=== PATIENT | male | born 1955 | race Caucasian/White ===

== ENCOUNTER 2017-05-01 10:57 | Emergency (ER) | payer MEDICAID ==
[~2017-05-01] VITALS: Ht 165.1 cm; Wt 91.0 kg
[~2017-05-01 10:57] MED LIST: ASPI-1265 PO; ATOR20TA PO; CLON-527 PO; CYCL-394 PO; GABA-341 PO; LEVO75TA57 PO; NORCO10T PO; POTA8TAB8; ROPI1TAB17 PO; VENL-190 PO
[2017-05-01] MEDS ORDERED: valacyclovir 500mg tablet PO STA (11:23)
[2017-05-01] MEDS ORDERED: diphenhydrAMINE 50 mg/ml inj IM ONE (11:25)
[2017-05-01] MEDS ORDERED: LIDOcaine Viscous 15ml cup MM PRN (11:25)
[2017-05-01] MEDS ORDERED: ketorolac trometh inj. 60 MG/2 ML VIAL IM ONE (11:25)
[2017-05-01] MEDS ORDERED: LIDO20SO16 PO (12:22)
[2017-05-01] MEDS ORDERED: HYDR-565 PO (12:22)
[2017-05-01] MEDS ORDERED: VALA10002 PO (12:22)
[2017-05-01 12:47] VITALS: BP 125/67
[2017-05-02] MEDS ORDERED: VALA10002 PO (09:39)
[2017-05-02] MEDS ORDERED: LIDO20SO16 PO (09:41)
[2017-05-02] MEDS ORDERED: MELO-102 (11:57)
== END 2017-05-01 12:47 | disposition home or self-care (01) ==
LOC: ER 10:57
DX: B02.21 Postherpetic geniculate ganglionitis (principal); K21.9 Gastro-esophageal reflux disease without esophagitis; G89.29 Other chronic pain; F12.10 Cannabis abuse, uncomplicated; Z88.0 Allergy status to penicillin; Z79.82 Long term (current) use of aspirin; Z79.899 Other long term (current) drug therapy
CPT/HCPCS: 96372; 99284; J1200; J1885

== ENCOUNTER 2017-05-02 07:14 | Inpatient (IN) | payer MEDICAID ==
[~2017-05-02] VITALS: Ht 175.3 cm; Wt 75.0 kg
[~2017-05-02 07:14] MED LIST changes: +HYDR-565 PO; +LIDO20SO16 PO; +VALA10002 PO
[2017-05-02] MEDS ORDERED: morphine 2 MG/ML inj. syringe IV ONE (07:30)
[2017-05-02] MEDS ORDERED: diphenhydrAMINE 25 MG/10 ML UD oral solution PO ONE (07:30)
[2017-05-02] MEDS ORDERED: mag hydrox/Alum hydrox/simeth 30ml oral suspension PO ONE (07:30)
[2017-05-02] MEDS ORDERED: normal saline 1000ML IV soln IVB ONE (07:30)
[2017-05-02] MEDS ORDERED: ketorolac trometh. 30mg/ml inj. IV ONE (07:30)
[2017-05-02] MEDS ORDERED: LIDOcaine Viscous 15ml cup PO ONE (07:30)
[2017-05-02] MEDS ORDERED: proparacaine 0.5% ophthalmic drops 15ml EACHEYE ONE (07:55)
[2017-05-02] MEDS ORDERED: acyclovir inj 1,000 MG in normal saline 250ml IV soln 230 ML IV ONE (08:00)
[2017-05-02 08:03] LABS: BASOPHILS % (AUTO) 0.4 % (0-1); EOSINOPHILS # (AUTO) 0.1 X10'3 (0-0.9); EOSINOPHILS % (AUTO) 1.6 % (0-6); HEMATOCRIT 46.5 % (42.0-52.0); HEMOGLOBIN 15.5 g/dl (14.0-17.9); LYMPHOCYTES # (AUTO) 0.6 X10'3 (1.1-4.8); LYMPHOCYTES % (AUTO) 7.7 % (21-51); MEAN CORPUSCULAR HGB CONC 33.3 % (33.0-36.5); MEAN CORPUSCULAR VOLUME 90.1 FL (78-98); MONOCYTES # (AUTO) 0.8 X10'3 (0-0.9); MONOCYTES % (AUTO) 10.7 % (2-12); NEUTROPHILS # (AUTO) 6.2 X10'3 (1.8-7.7); NEUTROPHILS % (AUTO) 79.6 % (42-75); PLATELET COUNT 206 X10'3 (140-440); RED BLOOD COUNT 5.16 X10'6 (4.70-6.10); RED CELL DISTRIBUTION WIDTH 13.3 % (11.5-14.5); WHITE BLOOD COUNT 7.8 X10'3 (4.5-11.0)
[2017-05-02 08:10] LABS: PARTIAL THROMBOPLASTIN TIME 30 SECONDS (22-32); PROTHROMBIN TIME 10.2 SECONDS (9.0-12.0)
[2017-05-02 08:26] LABS: ALANINE AMINOTRANSFERASE 37 U/L (12-78); ALBUMIN 3.7 G/DL (3.4-5.0); ALBUMIN/GLOBULIN RATIO 0.9 (1.1-1.5); ALKALINE PHOSPHATASE 79 IU/L (46-116); ANION GAP 10 (8-16); ASPARTATE AMINO TRANSFERASE 21 U/L (10-37); BILIRUBIN,TOTAL 0.5 MG/DL (0.1-1.0); BLOOD UREA NITROGEN 25 MG/DL (7-18); BUN/CREATININE RATIO 17.9 (5.4-32.0); C-REACTIVE PROTEIN 6.58 MG/DL (0.0-0.5); CALCIUM 8.8 MG/DL (8.5-10.1); CHLORIDE 101 MMOL/L (99-107); ETHANOL < 0.010 GM/DL (0.0-0.010); GLUCOSE 94 MG/DL (70-104); POTASSIUM 4.3 MMOL/L (3.5-5.1); SODIUM 138 MMOL/L (135-145); TOTAL CARBON DIOXIDE 26.9 MMOL/L (24-32); TOTAL PROTEIN 7.7 G/DL (6.4-8.2); eGFR 52 ML/MIN
[2017-05-02] MEDS ORDERED: magnesium Cl slow-release 64mg tablet PO PRN (09:10)
[2017-05-02] MEDS ORDERED: potassium Cl 20 mEq SR tablet PO PRN ×2 (09:10)
[2017-05-02] MEDS ORDERED: magnesium hydroxide 30ml (MOM) UD suspension PO PRN (09:10)
[2017-05-02] MEDS ORDERED: ondansetron/PF 4mg/2ml inj IV PRN (09:10)
[2017-05-02] MEDS ORDERED: magnesium 4gm in 100ml NS 100 ML IV PRN (09:10)
[2017-05-02] MEDS ORDERED: magnesium 2GM in 50ml NS 50 ML IV PRN (09:10)
[2017-05-02] MEDS ORDERED: potassium Cl 40MEQ/NS 500ml 500 ML IV PRN ×2 (09:10)
[2017-05-02] MEDS ORDERED: acetaminophen 325mg tablet PO PRN (09:10)
[2017-05-02] MEDS ORDERED: VALA10002 PO (09:39)
[2017-05-02] MEDS ORDERED: LIDO20SO16 PO (09:41)
[2017-05-02] MEDS ORDERED: MELO-102 (11:57)
[2017-05-02 12:36] VITALS: BP 126/76
[2017-05-02 12:54] LABS: URINE AMPHETAMINE SCREEN NEGATIVE (Neg); URINE BARBITUATE SCREEN NEGATIVE (Neg); URINE BENZODIAZEPINES SCREEN NEGATIVE (Neg); URINE CANNABINOID SCREEN POSITIVE (Neg); URINE COCAINE SCREEN NEGATIVE (Neg); URINE METHADONE SCREEN NEGATIVE (Neg); URINE OPIATE SCREEN POSITIVE (Neg); URINE PHENCYCLIDINE SCREEN NEGATIVE (Neg)
[2017-05-02] MEDS: HYDROcodone/acetaminophen 10/325mg tab PO PRN ×2 (13:04→21:11)
[2017-05-02] MEDS ORDERED: HYDROmorphone inj. 0.5 MG/0.5 ML DISP.SYRIN IV PRN (14:20)
[2017-05-02 15:40] LABS: HIV ANTIBODY 1&2 RAPID NON-REACTIVE (Neg)
[2017-05-02] MEDS: acyclovir inj 500 MG in normal saline 100ml IV soln 100 ML IV SCH ×2 (16:19→23:35)
[2017-05-02] MEDS ORDERED: HYDROcodone/acetaminophen 10/325mg tab PO PRN (17:30)
[2017-05-02 20:00] VITALS: BP 151/85
[2017-05-02] MEDS: dexamethasone 4mg tablet PO SCH (21:36)
[2017-05-02] MEDS: heparin, porcine 5000 units/ml vial SQ SCH (21:37)
[2017-05-02] MEDS: atorvastatin 20mg tablet PO SCH (21:37)
[2017-05-02] MEDS: gabapentin 100mg capsule PO SCH (21:38)
[2017-05-02] MEDS: ROPINIRole 1mg tablet PO SCH (21:38)
[2017-05-02] MEDS: valacyclovir 500mg tablet PO SCH (23:35)
[2017-05-03] VITALS: BP 145/73
[2017-05-03] MEDS ORDERED: VALACYCLOVIR HCL PO SCH
[2017-05-03] MEDS: dexamethasone 4mg tablet PO SCH ×4 (02:12→21:20)
[2017-05-03] MEDS: HYDROcodone/acetaminophen 10/325mg tab PO PRN ×4 (02:12→21:20)
[2017-05-03] MEDS ORDERED: morphine 2 MG/ML inj. syringe IV PRN (02:20)
[2017-05-03 05:57] LABS: BASOPHILS % (AUTO) 0.1 % (0-1); EOSINOPHILS # (AUTO) 0.1 X10'3 (0-0.9); EOSINOPHILS % (AUTO) 1.1 % (0-6); HEMATOCRIT 44.2 % (42.0-52.0); HEMOGLOBIN 15.2 g/dl (14.0-17.9); LYMPHOCYTES # (AUTO) 0.4 X10'3 (1.1-4.8); LYMPHOCYTES % (AUTO) 5.7 % (21-51); MEAN CORPUSCULAR HEMOGLOBIN 30.7 PG (27.0-31.0); MEAN CORPUSCULAR HGB CONC 34.4 % (33.0-36.5); MEAN CORPUSCULAR VOLUME 89.2 FL (78-98); MEAN PLATELET VOLUME 8.3 FL (7.4-10.4); MONOCYTES # (AUTO) 0.3 X10'3 (0-0.9); MONOCYTES % (AUTO) 4.1 % (2-12); NEUTROPHILS # (AUTO) 6.7 X10'3 (1.8-7.7); PLATELET COUNT 213 X10'3 (140-440); RED BLOOD COUNT 4.96 X10'6 (4.70-6.10); RED CELL DISTRIBUTION WIDTH 13.7 % (11.5-14.5); WHITE BLOOD COUNT 7.5 X10'3 (4.5-11.0)
[2017-05-03 06:28] LABS: ALBUMIN 3.4 G/DL (3.4-5.0); ANION GAP 9 (8-16); BLOOD UREA NITROGEN 22 MG/DL (7-18); BUN/CREATININE RATIO 15.7 (5.4-32.0); CALCIUM 9.2 MG/DL (8.5-10.1); CHLORIDE 102 MMOL/L (99-107); GLUCOSE 150 MG/DL (70-104); MAGNESIUM 2.1 MG/DL (1.5-2.4); POTASSIUM 4.7 MMOL/L (3.5-5.1); SODIUM 139 MMOL/L (135-145); TOTAL CARBON DIOXIDE 27.8 MMOL/L (24-32); eGFR 52 ML/MIN
[2017-05-03 06:39] VITALS: BP 148/79
[2017-05-03] MEDS: K and/or MAG REPLACEMENT MC SCH (08:00)
[2017-05-03] MEDS: levoTHYROXINE 75mcg tablet PO SCH (08:11)
[2017-05-03] MEDS: valacyclovir 500mg tablet PO SCH ×2 (08:12→15:59)
[2017-05-03] MEDS: acyclovir inj 500 MG in normal saline 100ml IV soln 100 ML IV SCH ×2 (08:12→15:59)
[2017-05-03] MEDS: cyclobenzaprine 10mg tablet PO SCH (08:12)
[2017-05-03] MEDS: venlafaxine XR 75mg capsule (Q24H) PO SCH (08:12)
[2017-05-03] MEDS: gabapentin 100mg capsule PO SCH ×3 (08:12→21:20)
[2017-05-03] MEDS: clonazePAM 0.5mg tablet PO SCH (08:12)
[2017-05-03] MEDS: heparin, porcine 5000 units/ml vial SQ SCH ×2 (08:13→21:21)
[2017-05-03 11:05] VITALS: BP 134/71
[2017-05-03] MEDS: mag hydrox/Alum hydrox/simeth 30ml oral suspension PO PRN (17:59)
[2017-05-03 18:00] VITALS: BP 133/75
[2017-05-03] MEDS: atorvastatin 20mg tablet PO SCH (21:20)
[2017-05-03] MEDS: ROPINIRole 1mg tablet PO SCH (21:20)
[2017-05-04] VITALS: BP 144/51
[2017-05-04] MEDS: valacyclovir 500mg tablet PO SCH ×3 (00:55→16:41)
[2017-05-04] MEDS: acyclovir inj 500 MG in normal saline 100ml IV soln 100 ML IV SCH ×2 (00:56→07:17)
[2017-05-04] MEDS: dexamethasone 4mg tablet PO SCH ×4 (03:25→20:37)
[2017-05-04] MEDS: HYDROcodone/acetaminophen 10/325mg tab PO PRN ×5 (03:25→20:39)
[2017-05-04 06:02] LABS: BASOPHILS % (AUTO) 0 % (0-1); EOSINOPHILS % (AUTO) 0 % (0-6); HEMATOCRIT 40.4 % (42.0-52.0); HEMOGLOBIN 13.9 g/dl (14.0-17.9); LYMPHOCYTES % (AUTO) 6.8 % (21-51); MEAN CORPUSCULAR HEMOGLOBIN 30.9 PG (27.0-31.0); MEAN CORPUSCULAR HGB CONC 34.5 % (33.0-36.5); MEAN CORPUSCULAR VOLUME 89.5 FL (78-98); MEAN PLATELET VOLUME 8.5 FL (7.4-10.4); MONOCYTES % (AUTO) 6.8 % (2-12); NEUTROPHILS # (AUTO) 12.3 X10'3 (1.8-7.7); NEUTROPHILS % (AUTO) 86.4 % (42-75); PLATELET COUNT 210 X10'3 (140-440); RED BLOOD COUNT 4.51 X10'6 (4.70-6.10); RED CELL DISTRIBUTION WIDTH 13.3 % (11.5-14.5); WHITE BLOOD COUNT 14.3 X10'3 (4.5-11.0)
[2017-05-04 06:18] LABS: ALBUMIN 2.9 G/DL (3.4-5.0); ANION GAP 8 (8-16); BLOOD UREA NITROGEN 23 MG/DL (7-18); BUN/CREATININE RATIO 19.2 (5.4-32.0); CHLORIDE 103 MMOL/L (99-107); GLUCOSE 192 MG/DL (70-104); MAGNESIUM 1.8 MG/DL (1.5-2.4); POTASSIUM 4.5 MMOL/L (3.5-5.1); SODIUM 138 MMOL/L (135-145); TOTAL CARBON DIOXIDE 26.6 MMOL/L (24-32); eGFR 62 ML/MIN
[2017-05-04] MEDS: venlafaxine XR 75mg capsule (Q24H) PO SCH (07:15)
[2017-05-04] MEDS: gabapentin 100mg capsule PO SCH ×3 (07:15→20:39)
[2017-05-04] MEDS: levoTHYROXINE 75mcg tablet PO SCH (07:15)
[2017-05-04] MEDS: cyclobenzaprine 10mg tablet PO SCH (07:15)
[2017-05-04] MEDS: clonazePAM 0.5mg tablet PO SCH (07:15)
[2017-05-04] MEDS: heparin, porcine 5000 units/ml vial SQ SCH ×2 (07:16→20:38)
[2017-05-04] MEDS: K and/or MAG REPLACEMENT MC SCH (07:17)
[2017-05-04 09:03] VITALS: BP 131/75
[2017-05-04 11:10] VITALS: BP 107/56
[2017-05-04 11:13] LABS: VARICELLA-ZOSTER VIRUS AB, IGG 1182 index (Immune >165)
[2017-05-04] MEDS: mag hydrox/Alum hydrox/simeth 30ml oral suspension PO PRN (16:44)
[2017-05-04 18:30] VITALS: BP 120/69
[2017-05-04] MEDS: atorvastatin 20mg tablet PO SCH (20:38)
[2017-05-04] MEDS: ROPINIRole 1mg tablet PO SCH (20:40)
[2017-05-04 23:30] VITALS: BP 132/83
[2017-05-05] VITALS: BP 132/83
[2017-05-05] MEDS: valacyclovir 500mg tablet PO SCH ×2 (00:34→08:53)
[2017-05-05] MEDS: HYDROcodone/acetaminophen 10/325mg tab PO PRN ×4 (00:36→12:45)
[2017-05-05 07:00] VITALS: BP 131/74
[2017-05-05] MEDS: K and/or MAG REPLACEMENT MC SCH (08:00)
[2017-05-05 08:33] LABS: BASOPHILS % (AUTO) 0.2 % (0-1); EOSINOPHILS % (AUTO) 0 % (0-6); HEMATOCRIT 39.8 % (42.0-52.0); HEMOGLOBIN 14.1 g/dl (14.0-17.9); LYMPHOCYTES # (AUTO) 1.3 X10'3 (1.1-4.8); MEAN CORPUSCULAR HEMOGLOBIN 31.4 PG (27.0-31.0); MEAN CORPUSCULAR HGB CONC 35.4 % (33.0-36.5); MEAN CORPUSCULAR VOLUME 88.7 FL (78-98); MEAN PLATELET VOLUME 8.7 FL (7.4-10.4); MONOCYTES # (AUTO) 1.1 X10'3 (0-0.9); MONOCYTES % (AUTO) 7.4 % (2-12); NEUTROPHILS # (AUTO) 12.4 X10'3 (1.8-7.7); NEUTROPHILS % (AUTO) 83.4 % (42-75); PLATELET COUNT 230 X10'3 (140-440); RED BLOOD COUNT 4.49 X10'6 (4.70-6.10); RED CELL DISTRIBUTION WIDTH 13.6 % (11.5-14.5); WHITE BLOOD COUNT 14.9 X10'3 (4.5-11.0)
[2017-05-05] MEDS: levoTHYROXINE 75mcg tablet PO SCH (08:53)
[2017-05-05] MEDS: venlafaxine XR 75mg capsule (Q24H) PO SCH (08:53)
[2017-05-05] MEDS: cyclobenzaprine 10mg tablet PO SCH (08:53)
[2017-05-05] MEDS: clonazePAM 0.5mg tablet PO SCH (08:53)
[2017-05-05] MEDS: dexamethasone 4mg tablet PO SCH (08:53)
[2017-05-05] MEDS: gabapentin 100mg capsule PO SCH ×2 (08:54→12:44)
[2017-05-05] MEDS: heparin, porcine 5000 units/ml vial SQ SCH (08:55)
[2017-05-05 08:57] LABS: ANION GAP 5 (8-16); BLOOD UREA NITROGEN 25 MG/DL (7-18); BUN/CREATININE RATIO 19.2 (5.4-32.0); CHLORIDE 102 MMOL/L (99-107); GLUCOSE 124 MG/DL (70-104); MAGNESIUM 1.8 MG/DL (1.5-2.4); POTASSIUM 4.6 MMOL/L (3.5-5.1); SODIUM 137 MMOL/L (135-145); TOTAL CARBON DIOXIDE 29.6 MMOL/L (24-32); eGFR 56 ML/MIN
[2017-05-05] MEDS ORDERED: VALA10002 PO (09:11)
[2017-05-05 19:51] LABS: HSV 1 PCR Negative (Negative); HSV 2 PCR Negative (Negative)
== END 2017-05-05 12:45 | disposition home or self-care (01) | DRG 50 ==
LOC: ER 07:15 → ED HOLD 09:08 → MED 3N 12:19
PROVIDERS: ADMIT Internal Medicine; ATTEND Family Medicine
DX: B02.21 Postherpetic geniculate ganglionitis (principal); N17.9 Acute kidney failure, unspecified; G62.9 Polyneuropathy, unspecified; R13.10 Dysphagia, unspecified; B02.9 Zoster without complications; R79.82 Elevated C-reactive protein (CRP); J44.9 Chronic obstructive pulmonary disease, unspecified; E03.9 Hypothyroidism, unspecified; D72.810 Lymphocytopenia; E78.5 Hyperlipidemia, unspecified; F12.90 Cannabis use, unspecified, uncomplicated; K21.9 Gastro-esophageal reflux disease without esophagitis; Z88.0 Allergy status to penicillin; F41.9 Anxiety disorder, unspecified; F32.9 Major depressive disorder, single episode, unspecified; G89.29 Other chronic pain
CPT/HCPCS: 36415; 80048; 80053; 80305; 80320; 83605; 83735; 84443; 85025; 85610; 85651; 85730; 86140; 86703; 87040; 87070; 87529; 99285; J0133; J1170; J1644; J1885; J2270; J7030; J8540; Q0163